=== PATIENT | male | born 1945 | race Caucasian/White ===

== ENCOUNTER 2020-10-19 13:39 | Emergency (ER) | payer MEDICARE, SELFPAY ==
--- NOTE | ~2020-10-19 | CT_ITS ---
EXAMINATION: CT ABDOMEN AND PELVIS WITHOUT CONTRAST CLINICAL INFORMATION: Left-sided pain with history of diverticulitis . COMPARISON: 11/28/2016. TECHNIQUE: Multidetector volumetric imaging was performed from the superior aspect of the liver through the pubic symphysis without contrast per request. Sagittal and coronal reformatted images were obtained on the technologist workstation. This CT examination was performed using dose optimization techniques as appropriate, variously including the following: *Automated exposure control *Adjustment of mA and/or kV according to patient size (this includes techniques or standardized protocols for targeted exams where dose is matched to indication/reason for exam; i.e. extremities or head) *Use of iterative reconstruction technique DLP: 814 mGy-cm. FINDINGS: LUNG BASES: Minimal right basilar atelectasis. No significant effusion. Pacemaker leads noted. Small hiatal hernia. LIVER, GALLBLADDER, BILIARY TREE: The non-contrast liver is normal in size, shape, and attenuation. No focal hepatic lesion or biliary ductal dilatation is present. The gallbladder is unremarkable with no evidence of radiopaque gallstones, gallbladder wall thickening, or obvious pericholecystic inflammatory changes. PANCREAS: Unremarkable. SPLEEN: Unremarkable. ADRENAL GLANDS: Unremarkable. KIDNEYS AND URETERS: Low-attenuation probable renal cysts are again seen bilaterally similar to the prior study. Otherwise the kidneys are normal in size, shape, and attenuation. No hydronephrosis, hydroureter, or calculi seen. No perinephric stranding. BLADDER: Decompressed. GASTROINTESTINAL TRACT: Scattered colonic diverticulosis within the tortuous redundant colon however I do not appreciate any definitive colonic wall thickening or significant pericolonic inflammatory changes to suggest acute diverticulitis. No obstructive changes seen. Visualized small bowel grossly unremarkable ABDOMINAL WALL: Postoperative changes along the intra-abdominal wall without evidence for herniation. LYMPHOVASCULAR STRUCTURES: Mild vascular calcification within the aorta iliac system. No bulky retroperitoneal or mesenteric adenopathy.. PELVIC VISCERA: Prominent prostatic calcifications. OSSEUS STRUCTURES: Degenerative changes in the spine. Lumbar spinal surgery at L4/L5 new from the [address]/CT abdomen pelvis wo con IMPRESSION: Extensive diverticulosis but no evidence for acute diverticulitis. No obstructive changes. Chronic appearing and postoperative changes otherwise as described above..
[2020-10-19 14:36] VITALS: BP 129/86; PULSE 79; RESP 18; TEMP 36.7; O2SAT 97; BMI 35.3
[2020-10-19 15:38] LABS: MANUAL DIFF FLAG NO
[2020-10-19 15:44] LABS: Basophils Percent Auto 0.4 % (0-2); Eosinophils Absolute Auto 0.2 X10*3/uL (0.0-0.4); Eosinophils Percent Auto 3.8 % (0-4); Hematocrit 45.7 % (42-52); Hemoglobin 15.5 g/dl (14.0-18.0); Imm Gran Abs Auto 0.01 X10*3/uL (0.00-0.03); Imm Gran Pct Auto 0.2 % (0.0-0.4); Lymphocytes Absolute Auto 1.3 X10*3/uL (1.2-4.9); Lymphocytes Percent Auto 22.9 % (20-40); Mean Corpuscular HGB Conc 33.9 g/dl (31.0-36.0); Mean Corpuscular Hemoglobin 30.8 pg (27.0-33.0); Mean Corpuscular Volume 90.7 fL (80-98); Mean Platelet Volume 9.5 fL (9.4-12.4); Monocytes Absolute Auto 0.4 X10*3/uL (0.1-1.2); Monocytes Percent Auto 7.8 % (2-11); Neutrophils Absolute Auto 3.6 X10*3/uL (2.0-8.3); Neutrophils Percent Auto 64.9 % (45-73); Platelet Count 197 X10*3/uL (160-400); Red Blood Count 5.04 X10*6/uL (4.60-5.80); Red Cell Distribution Width 14.2 % (11.0-16.0); White Blood Count 5.5 X10*3/uL (4.8-10.8)
[2020-10-19 15:44] LABS: Glucose Urine UA NEG (NEG); Leukocyte Esterase Urine NEG (NEG); Nitrite Urine NEG (NEG); PH 5.5 (5.0-8.0); Specific Gravity - Urine >= 1.030 (1.005-1.025); Urine Blood NEG (NEG); Urine Ketones NEG (NEG); Urine Protein 1+ MG/DL (NEG-TRACE)
[2020-10-19 15:55] LABS: Appearance Urine CLEAR; Color Urine DARK YELLOW
[2020-10-19 16:04] LABS: Alanine Aminotransferase 18 U/L (0-40); Albumin Level 4.2 g/dL (3.5-5.0); Alkaline Phosphatase 75 U/L (39-117); Anion Gap 14 (12-20); Aspartate Amino Transferase 24 U/L (5-37); Bilirubin Total 0.9 mg/dL (0.0-1.0); Blood Urea Nitrogen 18 mg/dL (9-16); Calcium 9.7 mg/dL (8.4-10.2); Carbon Dioxide 28 mmol/L (22-29); Chloride 105 mmol/L (96-108); Creatinine Clr Calc Pharmacy 79.3; Estimated Glomerular Filt Rate > 60; Glucose Random 88 mg/dL (60-115); Potassium 4.8 mmol/L (3.3-5.1); Sodium 142 mmol/L (135-145); Total Protein 7.3 g/dL (6.5-8.0)
[2020-10-19 16:51] LABS: RBC Urine 0-2 /HPF (0); Renal Epithelial Cells Urine 1+ /LPF; Squamous Epithelial Cell Urine 1+ /LPF; WBC Urine 0-2 /HPF (0-4)
[2020-10-19 19:50] VITALS: BP 162/87; PULSE 63; RESP 18; TEMP 36.7; O2SAT 98
--- NOTE | 2020-10-19 20:29 | ED_ITS ---
HPI - Abdominal Pain General Chief Complaint: Abdominal Pain Stated Complaint: General Medical Time Seen by Provider: 10/19/20 20:26 Source: patient Mode of arrival: ambulatory Limitations: no limitations History of Present Illness HPI narrative: patient with history of recurrent diverticulitis had bowel resection in the past complaining of pain diffuse abdomen for last 3 - 4 days getting worse feels abdomen is slightly bloated pain is more on the left side than the right side no fever or chills no blood in the stool feels constipated Related Data Previous Rx's Medication Instructions Recorded amoxicillin-pot clavulanate 1 tab PO BID #20 tab 10/19/20 [Augmentin] tramadol 50 mg PO Q6H PRN #20 tab 10/19/20 Allergies Allergy/AdvReac Type Severity Reaction Status Date / Time Iodinated Contrast Media Allergy Unknown HIVES, Verified 10/19/20 14:35 [IV CONTRAST] SWELLING contrast dye Allergy Intermediate rash, Uncoded 10/19/20 14:35 itching Review of Systems Review of Systems Yes all other systems are reviewed and are negative Physical Exam Vital Signs: Vital Signs: Last Vital Signs Temp 98.1 F 10/19/20 19:50 Pulse 60 10/19/20 21:04 Resp 16 10/19/20 21:04 BP 132/78 10/19/20 21:04 Pulse Ox 91 L 10/19/20 21:04 Body Mass Index 35.3 Appearance: Alert. Oriented X3. No acute distress. Eyes: PERRLA, No Nystagmus ENT: Pharynx normal. Oral Mucosa moist Neck: Normal inspection. Neck supple. CVS: Normal heart rate and rhythm. Pulses normal. Respiratory: No respiratory distress. Equal air entry bilateral, no wheezing/rales/rhonchi Abdomen: Soft, diffuse tenderness abdomen more on the left side than the right no rebound tenderness or guarding Bowel sounds are present, no mass palpable, no CVA tenderness Skin: Skin warm and dry. Normal skin color. Normal skin turgor. Extremities: No lower extremity edema. No calf tenderness Neuro: Oriented X 3. No motor deficit. No sensory deficit.No cerebellar signs , cranial nerves II-XII intact MDM - Abdominal Pain MDM Narrative Medical decision making narrative: patient history of diverticulitis now WBC count CT scan showed diverticulosis without diverticulitis will discharge maura delacruz home on Augmentin Medical Records Attestation: I reviewed the patient's medical records. Lab Data Attestation: I reviewed the patient's lab results. Result diagrams: 10/19/20 15:17 10/19/20 15:17 Labs: Lab Results 10/19/20 10/19/20 10/19/20 Range/Units 15:17 15:17 15:34 WBC 5.5 (4.8-10.8) X10*3/uL RBC 5.04 (4.60-5.80) X10*6/uL Hgb 15.5 (14.0-18.0) g/dl Hct 45.7 (42-52) % MCV 90.7 (80-98) fL MCH 30.8 (27.0-33.0) pg MCHC 33.9 (31.0-36.0) g/dl RDW 14.2 (11.0-16.0) % Plt Count 197 (160-400) X10*3/uL MPV 9.5 (9.4-12.4) fL Immature Gran % (Auto) 0.2 (0.0-0.4) % Neut % (Auto) 64.9 (45-73) % Lymph % (Auto) 22.9 (20-40) % [place] % (Auto) 7.8 (2-11) % Eos % (Auto) 3.8 (0-4) % Baso % (Auto) 0.4 (0-2) % Lymph # (Auto) 1.3 (1.2-4.9) X10*3/uL [place] # (Auto) 0.4 (0.1-1.2) X10*3/uL Eos # (Auto) 0.2 (0.0-0.4) X10*3/uL Baso # (Auto) 0.0 (0.0-0.2) X10*3/uL Abs Immat Gran (auto) 0.01 (0.00-0.03) X10*3/uL Absolute Neuts (auto) 3.6 (2.0-8.3) X10*3/uL Absolute Nucleated RBC 0.000 (0.0-0.012) X10*3/uL Nucleated RBC % (auto) 0.0 (0.0-0.2) /100WBC Sodium 142 (135-145) mmol/L Potassium 4.8 (3.3-5.1) mmol/L Chloride 105 (96-108) mmol/L Carbon Dioxide 28 (22-29) mmol/L Anion Gap 14 (12-20) BUN 18 H (9-16) mg/dL Creatinine 0.99 (0.5-1.4) mg/dL Estim Creat Clear Calc 79.3 Estimated GFR > 60 Random Glucose 88 (60-115) mg/dL Calcium 9.7 (8.4-10.2) mg/dL Total Bilirubin 0.9 (0.0-1.0) mg/dL AST 24 (5-37) U/L ALT 18 (0-40) U/L Alkaline Phosphatase 75 (39-117) U/L Total Protein 7.3 (6.5-8.0) g/dL Albumin 4.2 (3.5-5.0) g/dL Urine Color DARK YELLOW Urine Appearance CLEAR Urine pH 5.5 (5.0-8.0) Ur Specific Miles >= 1.030 H (1.005-1.025) Urine Protein 1+ H (NEG-TRACE) MG/DL Urine Glucose (UA) NEG (NEG) MG/DL Urine Ketones NEG (NEG) MG/DL Urine Blood NEG (NEG) Urine Nitrite NEG (NEG) Ur Leukocyte Esterase NEG (NEG) Urine RBC 0-2 (0) /HPF Urine WBC 0-2 (0-4) /HPF Ur Squamous Epith Cells 1+ /LPF Ur Renal Epithelial Cell 1+ /LPF Urine Bacteria NONE /LPF Discharge Plan Discharge Clinical Impression: Diverticulosis of colon Patient Disposition: Home, Self-Care Instructions: Diverticulosis (ED) Additional Instructions: you have diffuse diverticulosis will give a short course of antibiotics. Report to the ER if pain gets worse/fever / vomiting have clear food, advance diet as tolerated Prescriptions: New tramadol 50 mg tablet 50 mg PO Q6H PRN (Reason: pain) Qty: 20 RF: 0 amoxicillin-pot clavulanate [Augmentin] 875-125 mg tablet 1 tab PO BID Qty: 20 RF: 0 PMFSH Past Medical History Medical History Diabetes Diverticulitis HTN (hypertension) Surgical History H/O abdominal surgery Social History Social History Advance Directives: No Advance Directives Information Provided: Yes
[2020-10-19] MEDS: ondansetron HCL 4 MG/2 ML VIAL IVPUSH (20:59)
[2020-10-19] MEDS: 0.9 % Sodium Chloride 1,000 ML 999 ML IVCONT (20:59)
[2020-10-19] MEDS: Morphine Sulfate 4 MG/ML CARTRIDGE IVPUSH (20:59)
[2020-10-19 21:04] VITALS: BP 132/78; PULSE 60; RESP 16; O2SAT 91
[2020-10-19] MEDS: Amoxicillin/Potassium Clav 875 MG TABLET PO (21:35)
--- NOTE | 2020-10-19 21:38 | PC.NURSE ---
PT RESTING IN BED, LESS FREQUENT TRIPS TO THE BATHROOM IN THE LAST FEW HOURS. PT REPORTS HIS PAIN NOW 10/01 FROM 12/01. PT HAS NOT EXPERIENCED ANY NAUSEA OR VOMITING WHILE HERE. PT CAME IN DRINKING COFFEE.
[2020-10-19 22:09] VITALS: BP 144/83; PULSE 60; RESP 16; O2SAT 93
== END 2020-10-19 22:29 | disposition home or self-care (01) ==
PROVIDERS: Emergency Provider Internal Medicine
DX: K57.30 Diverticulosis of large intestine without perforation or abscess without bleeding (principal); E11.9 Type 2 diabetes mellitus without complications; I10 Essential (primary) hypertension
CPT/HCPCS: 36415; 74176; 80053; 81001; 85025; 96361; 96374; 96375; 99284; J2270; J2405

== ENCOUNTER 2020-12-11 19:43 | Emergency (ER) | payer MEDICARE, SELFPAY ==
[2020-12-11 20:08] VITALS: BP 180/99; PULSE 75; RESP 16; TEMP 36.6; O2SAT 97; BMI 35.0
[2020-12-11 20:43] LABS: MANUAL DIFF FLAG NO
[2020-12-11 20:47] LABS: Basophils Percent Auto 0.9 % (0-2); Eosinophils Absolute Auto 0.4 X10*3/uL (0.0-0.4); Eosinophils Percent Auto 8.3 % (0-4); Hematocrit 40.8 % (42-52); Hemoglobin 14.3 g/dl (14.0-18.0); Imm Gran Abs Auto 0.02 X10*3/uL (0.00-0.03); Imm Gran Pct Auto 0.5 % (0.0-0.4); Lymphocytes Absolute Auto 1.3 X10*3/uL (1.2-4.9); Lymphocytes Percent Auto 30.1 % (20-40); Mean Corpuscular Hemoglobin 31.5 pg (27.0-33.0); Mean Corpuscular Volume 89.9 fL (80-98); Mean Platelet Volume 9.3 fL (9.4-12.4); Monocytes Absolute Auto 0.4 X10*3/uL (0.1-1.2); Monocytes Percent Auto 9.7 % (2-11); Neutrophils Absolute Auto 2.2 X10*3/uL (2.0-8.3); Neutrophils Percent Auto 50.5 % (45-73); Platelet Count 167 X10*3/uL (160-400); Red Blood Count 4.54 X10*6/uL (4.60-5.80); Red Cell Distribution Width 13.5 % (11.0-16.0); White Blood Count 4.4 X10*3/uL (4.8-10.8)
[2020-12-11 21:07] LABS: Alanine Aminotransferase 16 U/L (0-40); Albumin Level 3.8 g/dL (3.5-5.0); Alkaline Phosphatase 81 U/L (39-117); Anion Gap 12 (12-20); Aspartate Amino Transferase 17 U/L (5-37); Bilirubin Total 0.6 mg/dL (0.0-1.0); Blood Urea Nitrogen 14 mg/dL (9-16); Calcium 9.1 mg/dL (8.4-10.2); Carbon Dioxide 29 mmol/L (22-29); Chloride 108 mmol/L (96-108); Creatinine Clr Calc Pharmacy 78.6; Estimated Glomerular Filt Rate > 60; Glucose Random 129 mg/dL (60-115); Potassium 4.6 mmol/L (3.3-5.1); Sodium 144 mmol/L (135-145); Total Protein 6.5 g/dL (6.5-8.0)
[2020-12-11 22:40] VITALS: BP 183/100; PULSE 62; RESP 16; TEMP 36.5; O2SAT 95
--- NOTE | 2020-12-11 23:07 | ED.GENADULT ---
HPI - General Adult General Chief complaint: General Medical Stated complaint: High blood pressure Time Seen by Provider: 12/11/20 23:07 Source: patient Mode of arrival: ambulatory Limitations: no limitations History of Present Illness HPI narrative: patient went to [facility] and was found to have BP of 176/95 six days ago. patient has been checking everyday and it remains high. patient is on Metoprolol 25mg BID and Valsartan 160mg. Patient denies chest pain or shortness of breath Onset (ago): week(s) Severity: moderate Related Data Previous Rx's Medication Instructions Recorded amoxicillin 875 mg-potassium 1 tab PO BID #20 tab 10/19/20 clavulanate 125 mg tablet (Augmentin) tramadol 50 mg tablet 50 mg PO Q6H PRN #20 tab 10/19/20 Allergies Allergy/AdvReac Type Severity Reaction Status Date / Time Iodinated Contrast Media Allergy Unknown HIVES, Verified 10/19/20 14:35 [IV CONTRAST] SWELLING contrast dye Allergy Intermediate rash, Uncoded 10/19/20 14:35 itching Review of Systems Neurologic: Denies Sensory deficit (Neuro) [facility] Past Medical History Medical History Diabetes Diverticulitis HTN (hypertension) Surgical History H/O abdominal surgery Social History Social History Advance Directives: No Advance Directives Information Provided: No Physical Exam Vital Signs: Vital Signs: Last Vital Signs Temp 97.7 F 12/11/20 22:40 Pulse 60 12/12/20 00:26 Resp 18 12/12/20 00:26 BP 178/104 H 12/12/20 00:26 Pulse Ox 98 12/12/20 00:26 Body Mass Index 35.0 Const: General: healthy appearing Nutritional Appearance: average body habitus Orientation/consciousness: oriented to person and patient oriented x3 Limitations: no limitations HENMT: Head: Yes normal to inspection Ears: external ears normal General nose exam: Normal external nose present Mouth: Normal oral and palatal mucosa present and oropharynx normal Throat: Yes posterior oropharynx normal Eyes: General: appearance normal, both eyes and all related structures Neck: Other: supple Neck: Yes normal visual inspection Chest: Chest palpation & inspection: normal inspection of the chest Resp: Auscultation: clear to auscultation bilaterally Cardio: Jugular venous distension: no JVD Rate: regular rate Rhythm: regular rhythm Heart sounds: S1 normal heart sound present and S2 normal heart sound present GI: Inspection: Yes normal to inspection Palpation (GI): Soft to palpation, nontender and No hepatosplenomegaly present Auscultation: normal bowel sounds : General: Yes no CVA tenderness Back/Spine/Pelvis: Back: no CVA tenderness Skin: General skin exam: no rashes or lesions noted Neuro: General: oriented to person and patient oriented x3 Cranial nerves: Yes CN's II-XII intact bilaterally Motor exam (neuro): 5/5 motor strength present throughout Sensory Exam: No Sensory deficit (Neuro) Extrem: General: Yes normal to inspection Psych: Appearance: grossly normal Course Reevaluation(s) Reevaluation #1: patients pressure is coming down no evidence of end organ damage will increase metoprolol to 50mg twice a day Time: 01:13 Medical Decision Making Lab Data Result diagrams: 12/11/20 20:37 12/11/20 20:37 Labs: Lab Results 12/11/20 12/11/20 Range/Units 20:37 20:37 WBC 4.4 L (4.8-10.8) X10*3/uL RBC 4.54 L (4.60-5.80) X10*6/uL Hgb 14.3 (14.0-18.0) g/dl Hct 40.8 L (42-52) % MCV 89.9 (80-98) fL MCH 31.5 (27.0-33.0) pg MCHC 35.0 (31.0-36.0) g/dl RDW 13.5 (11.0-16.0) % Plt Count 167 (160-400) X10*3/uL MPV 9.3 L (9.4-12.4) fL Immature Gran % (Auto) 0.5 H (0.0-0.4) % Neut % (Auto) 50.5 (45-73) % Lymph % (Auto) 30.1 (20-40) % [place] % (Auto) 9.7 (2-11) % Eos % (Auto) 8.3 H (0-4) % Baso % (Auto) 0.9 (0-2) % Lymph # (Auto) 1.3 (1.2-4.9) X10*3/uL [place] # (Auto) 0.4 (0.1-1.2) X10*3/uL Eos # (Auto) 0.4 (0.0-0.4) X10*3/uL Baso # (Auto) 0.0 (0.0-0.2) X10*3/uL Abs Immat Gran (auto) 0.02 (0.00-0.03) X10*3/uL Absolute Neuts (auto) 2.2 (2.0-8.3) X10*3/uL Absolute Nucleated RBC 0.000 (0.0-0.012) X10*3/uL Nucleated RBC % (auto) 0.0 (0.0-0.2) /100WBC Sodium 144 (135-145) mmol/L Potassium 4.6 (3.3-5.1) mmol/L Chloride 108 (96-108) mmol/L Carbon Dioxide 29 (22-29) mmol/L Anion Gap 12 (12-20) BUN 14 (9-16) mg/dL Creatinine 0.98 (0.5-1.4) mg/dL Estim Creat Clear Calc 78.6 Estimated GFR > 60 Random Glucose 129 H D (60-115) mg/dL Calcium 9.1 D (8.4-10.2) mg/dL Total Bilirubin 0.6 (0.0-1.0) mg/dL AST 17 (5-37) U/L ALT 16 (0-40) U/L Alkaline Phosphatase 81 (39-117) U/L Total Protein 6.5 (6.5-8.0) g/dL Albumin 3.8 (3.5-5.0) g/dL Discharge Plan Discharge Clinical Impression: Hypertension Qualifiers: Hypertension type: primary hypertension Qualified Code(s): I10 - Essential (primary) hypertension Patient Disposition: Home, Self-Care Instructions: Chronic Hypertension (ED) Additional Instructions: increase your metoprolol to 50mg twice a day Prescriptions: No Action tramadol 50 mg tablet 50 mg PO Q6H PRN (Reason: pain) Qty: 20 RF: 0 amoxicillin-pot clavulanate [Augmentin] 875-125 mg tablet 1 tab PO BID Qty: 20 RF: 0 Referrals: Physician,None [Primary Care Provider] - 1 week
[2020-12-11 23:18] VITALS: BP 183/105; PULSE 61; RESP 16; O2SAT 98
[2020-12-11 23:23] VITALS: BP 183/105; PULSE 61
[2020-12-11] MEDS: Metoprolol Succinate ER 50 MG TAB.ER.24H PO (23:23)
[2020-12-12] VITALS: BP 183/104; PULSE 60; O2SAT 98
[2020-12-12 00:26] VITALS: BP 178/104; PULSE 60; RESP 18; O2SAT 98
[2020-12-12 01:23] VITALS: BP 177/97; PULSE 62
[2020-12-12 01:23] LABS: Glucose Urine UA NEG (NEG); Leukocyte Esterase Urine NEG (NEG); Nitrite Urine NEG (NEG); PH 7.5 (5.0-8.0); Specific Gravity - Urine 1.015 (1.005-1.025); Urine Blood NEG (NEG); Urine Ketones NEG (NEG); Urine Protein NEG (NEG-TRACE)
[2020-12-12 01:46] LABS: Appearance Urine HAZY; Color Urine STRAW; UACC Culture Trigger NO
== END 2020-12-12 01:29 | disposition home or self-care (01) ==
PROVIDERS: Emergency Provider Emergency Medicine
DX: I10 Essential (primary) hypertension (principal); E11.9 Type 2 diabetes mellitus without complications; Z79.899 Other long term (current) drug therapy
CPT/HCPCS: 36415; 80053; 81003; 85025; 99283; 99284

== ENCOUNTER 2020-12-17 09:44 | Emergency (ER) | payer MEDICARE, SELFPAY ==
[2020-12-17 10:05] VITALS: BP 153/96; PULSE 70; RESP 16; TEMP 36.7; O2SAT 97; BMI 35.7
--- NOTE | 2020-12-17 10:15 | ED.GENADULT ---
HPI - General Adult General Chief complaint: Recheck/Abnormal Lab/Rx Stated complaint: high blood sugar Time Seen by Provider: 12/17/20 10:08 Source: patient Mode of arrival: ambulatory Limitations: no limitations History of Present Illness HPI narrative: compliant with meds, going to 6 different pharmacies checking his BP complaint: HTN Onset (ago): week(s) (1) Severity: mild Relieving factors: none Exacerbating factors: none Associated symptoms: denies other symptoms Treatments prior to arrival: none Related Data Previous Rx's Medication Instructions Recorded amoxicillin 875 mg-potassium 1 tab PO BID #20 tab 10/19/20 clavulanate 125 mg tablet (Augmentin) tramadol 50 mg tablet 50 mg PO Q6H PRN #20 tab 10/19/20 Allergies Allergy/AdvReac Type Severity Reaction Status Date / Time Iodinated Contrast Media Allergy Unknown HIVES, Verified 10/19/20 14:35 [IV CONTRAST] SWELLING contrast dye Allergy Intermediate rash, Uncoded 10/19/20 14:35 itching Review of Systems Review of Systems: Constitutional : No Fever, No Chills ENT/Mouth : No sore throat, No Rhinorrhea Eyes: No Eye Pain, No Swelling, No Redness Cardiovascular : No Chest Pain, No SOB Respiratory : No Cough, No Sputum, No Wheezing Gastrointestinal : No Nausea, No Vomiting, No Diarrhea Genitourinary : No Dysuria, No Urinary Frequency, No Hematuria, Musculoskeletal : No joint pain, No Myalgias, No Joint Swelling Skin : No Skin Lesions, No rash Neuro : No Weakness, No Numbness, No Dizziness, No Headache All other systems reviewed and are negative PMFSH Past Medical History Medical History Diabetes Diverticulitis HTN (hypertension) Surgical History H/O abdominal surgery Social History Social History Advance Directives: No Advance Directives Information Provided: No Physical Exam Vital Signs: Vital Signs: Last Vital Signs Temp 98.1 F 12/17/20 10:05 Pulse 70 12/17/20 10:05 Resp 16 12/17/20 10:05 BP 153/96 H 12/17/20 10:05 Pulse Ox 97 12/17/20 10:05 Body Mass Index 35.7 Appearance: Alert. Oriented X3. No acute distress. Eyes: Pupils equal, round and reactive to light. ENT: Pharynx normal. Neck: Normal inspection. Neck supple. CVS: Normal heart rate and rhythm. Pulses normal. Respiratory: No respiratory distress. Breath sounds normal. Abdomen: Soft and non-tender. Skin: Skin warm and dry. Normal skin color. Normal skin turgor. Extremities: No lower extremity edema. No calf ttp Neuro: Oriented X 3. No motor deficit. No sensory deficit. Medical Decision Making MDM Narrative Medical decision making narrative: 75 yo male with HTN no symptoms but very nervous as he goes to 6 different pharmacies a dtrying to check his pressure and states it is high at times but no symptoms. Likely anxiety driven. Discussed appropriate blood pressure checks. Stable for DC Discharge Plan Discharge Clinical Impression: HTN (hypertension) Qualifiers: Hypertension type: unspecified Qualified Code(s): I10 - Essential (primary) hypertension Patient Disposition: Home, Self-Care Instructions: Chronic Hypertension (ED) Additional Instructions: return to ED for any worsening symptoms or concerns ONLY CHECK YOUR BLOOD PRESSURE IN THE MORNING AND AT NIGHT UNLESS YOU HAVE SYMPTOMS Prescriptions: No Action tramadol 50 mg tablet 50 mg PO Q6H PRN (Reason: pain) Qty: 20 RF: 0 amoxicillin-pot clavulanate [Augmentin] 875-125 mg tablet 1 tab PO BID Qty: 20 RF: 0
[2020-12-17 10:30] VITALS: BP 153/92; PULSE 66; RESP 15; TEMP 36.7; O2SAT 96
== END 2020-12-17 10:42 | disposition home or self-care (01) ==
PROVIDERS: Emergency Provider Emergency Medicine
DX: I10 Essential (primary) hypertension (principal); E11.9 Type 2 diabetes mellitus without complications
CPT/HCPCS: 99282; 99284

== ENCOUNTER 2023-07-08 12:04 | Emergency (ER) | payer MEDICARE, SELFPAY ==
--- NOTE | ~2023-07-08 | CT_ITS ---
EXAMINATION: CT HEAD WITHOUT CONTRAST CLINICAL INFORMATION: Dizziness COMPARISON: CT head 09/01/2011 TECHNIQUE: Contiguous axial imaging was performed from the skull base to vertex without intravenous administration of contrast. This CT examination was performed using dose optimization techniques as appropriate, variously including the following: *Automated exposure control *Adjustment of mA and/or kV according to patient size (this includes techniques or standardized protocols for targeted exams where dose is matched to indication/reason for exam; i.e. extremities or head) *Use of iterative reconstruction technique DLP: 749 mGy-cm FINDINGS: There is no evidence of acute intracranial hemorrhage or emphysematous territorial infarction. No abnormal mass effect or midline shift is seen. Siu to white matter differentiation is well preserved. No extra-axial fluid collections are identified. The ventricles are normal in size. Patchy periventricular and deep white matter hypodensities likely reflecting chronic microangiopathic changes. No acute calvarial fracture.. Mucosal thickening/partial opacification of bilateral maxillary, ethmoid, sphenoid sinuses. Decreased pneumatization of bilateral mastoid air cells. CT/CT head/brain wo IV con IMPRESSION: No CT evidence of acute intracranial hemorrhage or edematous territorial infarction. Maxillary, ethmoid and sphenoid sinus mucosal thickening/partial opacification.
--- NOTE | ~2023-07-08 | XR_ITS ---
EXAMINATION: XR HIP, LEFT CLINICAL INFORMATION: Pain, difficulty standing and walking COMPARISON: None available. TECHNIQUE: Two views of the left hip. One view of the pelvis. FINDINGS: No acute fracture or dislocation. Joint spaces are maintained. Soft tissues are unremarkable. Surgical clips overlying the pelvis. Surgical wilfredo overlie the pelvis. Partially imaged lumbar fusion hardware. XR/XR hip LT w PEL1V IMPRESSION: * No acute osseous abnormality.
--- NOTE | ~2023-07-08 | XR_ITS ---
EXAMINATION: XR CHEST CLINICAL INFORMATION: Reason for Exam hypoxic, tachycardic COMPARISON: Chest radiograph 07/04/2011 TECHNIQUE: 2 views of the chest FINDINGS: Lines and tubes: Left chest wall dual lead cardiac pacemaker unchanged. Clear lungs. No pleural effusion. No pneumothorax. Normal cardiomediastinal silhouette. XR/XR chest 2V IMPRESSION: * Clear lungs.
[2023-07-08 12:09] VITALS: BP 95/63; PULSE 123; RESP 20; TEMP 37.2; O2SAT 93; BMI 32.6
--- NOTE | 2023-07-08 12:11 | ED.GENADULT ---
HPI - General Adult General Chief complaint: Extremity Injury, Lower Stated complaint: Hip pain Time Seen by Provider: 07/08/23 16:11 Source: patient and family Mode of arrival: wheelchair Limitations: no limitations History of Present Illness HPI narrative: 77 yo male with a history of DM, HTN, prior back surgery here with multiple complaints. Per patent over the last 2 weeks he has had progressive left hip pain with no known injury or trauma. He has been taking tylenol with continued pain. Denies radiation of pain. No associated numbness, tingling, weakness of the lower extremities. No bowel or bladder incontinence. No numbness in the groin. No fevers or chills. Patient reports that he had been taking gabapentin for pain but has not taken it for several months. Last evening he had worsening left hip pain and he took a dose of gabapentin and Tylenol before bed. When he woke up this morning he noticed that he was feeling very shaky and weak and was having difficulty with ambulation. He is now feeling better. He denies any associated headache, dizziness, vision changes, vomiting, chest pain, shortness of breath. Of note, the patient has been visiting his family from [place]. He has plans to return home tomorrow where his care providers are. Related Data Previous Rx's Medication Instructions Recorded amoxicillin 875 mg-potassium 1 tab PO BID #20 tabs 10/19/20 clavulanate 125 mg tablet (Augmentin) tramadol 50 mg tablet 50 mg PO Q6H PRN pain #20 tabs 10/19/20 cefuroxime axetil 500 mg tablet 500 mg PO BID #14 tabs 07/08/23 Allergies Allergy/AdvReac Type Severity Reaction Status Date / Time Iodinated Contrast Media Allergy Unknown HIVES, Verified 07/08/23 12:15 [IV CONTRAST] SWELLING contrast dye Allergy Intermediate rash, Uncoded 07/08/23 12:15 itching Review of Systems Review of Systems: Yes all other systems are reviewed and are negative Constitutional: Constitutional: Reports no additional constitutional complaints, Denies body ache(s), Denies chills, Denies fever(s), Denies headache(s) and Denies weakness Eyes: Eyes: Reports no additional eye complaints and Denies change in vision ENT: Reports system reviewed and no additional complaints, except as documented, Denies dizziness, Denies headache(s), Denies nasal congestion, Denies nasal discharge and Denies neck pain Cardiovascular: Cardiovascular: Reports no additional cardiovascular complaints, Denies chest pain, Denies leg edema and Denies dyspnea Respiratory: Respiratory: Reports no additional respiratory complaints, Denies cough and Denies dyspnea Gastrointestinal: Gastrointestinal: Reports no additional gastrointestinal complaints, Denies abdominal pain, Denies diarrhea, Denies nausea and Denies vomiting Genitourinary: Genitourinary: Denies urinary incontinence Musculoskeletal: Musculoskeletal: Reports no additional musculoskeletal complaints, Reports abnormal gait, Denies back pain, Reports arthralgias, Denies joint swelling, Denies neck pain, Denies numbness and Denies tingling Integumentary/Breasts: Skin/Breast: Reports system reviewed and no additional complaints, except as docu and Denies rash Neurologic: Reports system reviewed and no additional complaints, except as documented, Denies Abnormal speech present, Reports abnormal gait, Denies dizziness, Denies headache(s), Denies numbness, Denies tingling and Denies weakness PMFSH Past Medical History Attestation statement: The following information was validated with the patient. Source: old records reviewed and nursing notes reviewed Medical History HTN (hypertension) Diabetes Diverticulitis Surgical History H/O abdominal surgery Social History Social History Alcohol intake: never Patient Tobacco Use Status: Never used Tobacco Smoked in Last 30 Days: No Use of substances other than those prescribed or required for medical reasons: No Advance Directives: No Advance Directives Information Provided: No Physical Exam ED Vital Signs: Vital Signs - 24 hr 07/08/23 12:09 07/08/23 16:06 07/08/23 17:03 Temperature 98.9 F 99.1 F Pulse Rate 123 H 77 78 Respiratory Rate 20 16 Blood Pressure 95/63 133/69 124/58 L Pulse Oximetry 93 95 Oxygen Delivery Method Room Air Room Air 07/08/23 17:06 07/08/23 17:08 Temperature Pulse Rate 87 100 Respiratory Rate Blood Pressure 124/64 113/68 Pulse Oximetry Oxygen Delivery Method BMI result Body Mass Index 32.6 Const General: cooperative, healthy appearing, comfortable and no acute distress Orientation/consciousness: patient oriented x3 Limitations: no limitations HENMT Head: Yes normal to inspection, No Somers's sign and No raccoon eyes Ears: hearing grossly normal bilaterally and TM's normal bilaterally General nose exam: Normal external nose present Face and sinus: Yes normal facial exam Mouth: Normal oral and palatal mucosa present Throat: Yes posterior oropharynx normal Eyes General: appearance normal, both eyes and all related structures Pupils: Equal, round and reactive pupils present Neck Neck: Yes normal visual inspection, Yes full ROM, Yes no lymphadenopathy and Yes no meningeal signs Chest Chest palpation & inspection: normal inspection of the chest Resp Effort & Inspection: normal respiratory effort Auscultation: clear to auscultation bilaterally Cardio Rate: regular rate Rhythm: regular rhythm Peripheral pulses: Peripheral pulses 2+ throughout GI Inspection: Yes normal to inspection Palpation (GI): Soft to palpation and nontender Auscultation: normal bowel sounds Back/Spine/Pelvis Thoracic/Lumbar Spine: thoracic and lumbar spine normal to inspection Skin General skin exam: no rashes or lesions noted Neuro General: patient oriented x3, moves all extremities, no meningeal signs, no focal motor deficits and normal sensation to monofilament Cranial nerves: Yes CN's II-XII intact bilaterally, Yes Equal, round and reactive pupils present, Yes Bilaterally intact EOM present, Yes Nystagmus not present, Yes Normal facial strength present and Yes Midline tongue present Cognition (Neuro): normal cognition Speech: No Abnormal speech present Gait exam (Neuro): Normal gait present Motor exam (neuro): 5/5 motor strength present throughout Sensory Exam: Normal double simultaneous stimulation for sensation Coordination: [id number]-brvy test normal, [id number]-[id number] test normal and tandem gait normal Extrem Other: I am unable to reproduce any hip pain on exam. Patient has full active and passive range motion. I do not appreciate any shortening or deformity of the hip. He has distal pulses. Normal sensation distally General: Yes normal to inspection NIH Stroke Scale Internal: Initial- Upon Arrival Level of Consciousness: Alert Level of Consciousness Questions: Answers both questions correctly Level of Consciousness Commands: Performs both tasks correctly Best Gaze: Normal Visual: No visual loss Facial Palsy: Normal Motor Arm (Right): No drift Motor Arm (Left): No drift Motor Leg (Right): No drift Motor Leg (Left): No drift Limb Ataxia: Absent Sensory: Normal Best Language: No aphasia Dysarthia: Normal Extinction and Inattention: No abnormality Score: 0 Course Course Course Narrative: This is a rapid medical exam: Additional HPI, ROS, PE not included below will be deferred to primary provider. Patient is a 77-year-old male presenting to the ED with complaint of left hip pain for the past 2 weeks, is worsening. Last night was unable to stand. Denies radiation down leg. Denies fall or other injury. BP 95/63 left arm, 97/73 right arm, tachycardic to 120, O2 93-95% on room air. Plan: x-ray, EKG, labs, CXR, viral swabs Reevaluation(s) Reevaluation #1: 1915-reviewed labs which show mild leukocytosis otherwise unremarkable. UA is consistent with UTI. No clinical findings to suggest pyelonephritis or renal colic. Imaging shows no acute finding. Normal neuro exam so I do not believe the patient needs CT with IV contrast or MRI to rule out underlying CVA or large vessel occlusion. Patient has plans to fly home to [place] tomorrow and follow-up with his providers. I will discharge him home with a prescription for an antibiotic. Reviewed worrisome signs and symptoms when to return to the emergency room. Comfortable plan for discharge home Medical Decision Making Medical Decision Making MDM Narrative: 77 yo male with a history of DM, HTN, prior back surgery here with multiple complaints. Per patent over the last 2 weeks he has had progressive left hip pain with no known injury or trauma. He has been taking tylenol with continued pain. Denies radiation of pain. No associated numbness, tingling, weakness of the lower extremities. No bowel or bladder incontinence. No numbness in the groin. No fevers or chills. Patient reports that he had been taking gabapentin for pain but has not taken it for several months. Last evening he had worsening left hip pain and he took a dose of gabapentin and Tylenol before bed. When he woke up this morning he noticed that he was feeling very shaky and weak and was having difficulty with ambulation. He is now feeling better. He denies any associated headache, dizziness, vision changes, vomiting, chest pain, shortness of breath. Of note, the patient has been visiting his family from [place]. He has plans to return home tomorrow where his care providers are. On exam patient has no neurological deficits or red flag symptoms. His NIH is 0. He reports he feels much improved now than he did earlier with waking. His vitals are stable I am unable to reproduce any hip pain on exam. Patient has full active and passive range motion. I do not appreciate any shortening or deformity of the hip. He has distal pulses. Normal sensation distally Will obtain labs, UA, orthostatic, CT head, x-rays of chest and left Differential Diagnosis Differential Diagnoses: The differential diagnosis associated with the presentation includes Hip Pain-strain, sprain, lumbar radiculopathy, osteoarthritis. Low suspicion for fracture or dislocation Unsteady gait-orthostatic hypotension, electrolyte abnormality, anemia, CVA/ICH, ACS Admission/Observation Consideration of admission/observation: Escalation of care including admission/observation considered Normal neurological exam with no focal deficits to suggest need for admission for MRI or urgent Neurology consultation Lab Data MDM Lab Attestation statement: I reviewed the patient's lab results. 07/08/23 12:25 07/08/23 12:25 Labs: Lab Results 07/08/23 07/08/23 07/08/23 Range/Units 12:25 17:55 18:40 WBC 13.9 H (4.8-10.8) X10*3/uL RBC 5.04 (4.60-5.80) X10*6/uL Hgb 15.6 (14.0-18.0) g/dl Hct 44.7 (42.0-52.0) % MCV 88.7 (80.0-98.0) fL MCH 31.0 (27.0-33.0) pg MCHC 34.9 (31.0-36.0) g/dl RDW 13.0 (11.0-16.0) % Plt Count 227 (160-400) X10*3/uL MPV 9.3 L (9.4-12.4) fL Immature Gran % (Auto) 0.4 (0.0-0.4) % Neut % (Auto) 81.4 H (45-73) % Lymph % (Auto) 10.8 L (20-40) % [place] % (Auto) 7.0 (2-11) % Eos % (Auto) 0.0 (0-4) % Baso % (Auto) 0.4 (0-2) % Lymph # (Auto) 1.5 (1.2-4.9) X10*3/uL [place] # (Auto) 1.0 (0.1-1.2) X10*3/uL Eos # (Auto) 0.0 (0.0-0.4) X10*3/uL Baso # (Auto) 0.1 (0.0-0.2) X10*3/uL Abs Immat Gran (auto) 0.06 H (0.00-0.03) X10*3/uL Absolute Neuts (auto) 11.4 H (2.0-8.3) x10*3/uL Absolute Nucleated RBC 0.000 (0.0-0.012) X10*3/uL Nucleated RBC % (auto) 0.0 (0.0-0.2) /100WBC PT 13.7 H (11.1-13.3) SEC INR 1.1 (0.9-1.1) Sodium 142 (135-145) mmol/L Potassium 4.4 (3.3-5.1) mmol/L Chloride 107 (96-108) mmol/L Carbon Dioxide 25 (22-29) mmol/L Anion Gap 14 (12-20) BUN 18 H (9-16) mg/dL Creatinine 1.14 (0.5-1.4) mg/dL Estim Creat Clear Calc 63.3 Estimated GFR > 60 Random Glucose 175 H (60-115) mg/dL Calcium 9.4 (8.4-10.2) mg/dL Magnesium 1.6 (1.6-2.6) mg/dL Total Bilirubin 1.5 H (0.0-1.0) mg/dL AST 12 (5-37) U/L ALT 11 (0-40) U/L Alkaline Phosphatase 71 (39-117) U/L Troponin I High Sens 19.4 22.4 (<3.5-35.0) ng/L Total Protein 7.4 (6.5-8.0) g/dL Albumin 4.0 (3.5-5.0) g/dL Urine Color Dark Yellow Urine Appearance Cloudy Urine pH 6.0 (5.0-9.0) Ur Specific [place] 1.020 (1.005-1.025) Urine Protein Trace (Neg-Trace) mg/dL Urine Glucose (UA) Negative (Negative) mg/dL Urine Ketones Trace (Negative) mg/dL Urine Blood Trace H (Negative) Urine Nitrite Positive H (Negative) Ur Leukocyte Esterase Large (3+) H (Negative) Urine RBC 0-2 (0-2) /HPF Urine WBC >50 H (0-5) /HPF Ur Squamous Epith Cells 0-2 (0-2) /HPF Urine Bacteria 4+ (None Seen) Hyaline Casts 3-5 (0-2) /LPF Influenza Type A (PCR) NEGATIVE (Negative) Influenza Type B (PCR) NEGATIVE (Negative) RSV RNA Qual (PCR) NEGATIVE (Negative) SARS-CoV-2 RNA (RT-PCR) NEGATIVE (Negative) Independent Interpretation I performed an independent interpretation of an: EKG, Plain X-Ray and CT Scan Interpretation: I independently reviewed the x-ray/CT and agree with the radiology report I independently reviewed the EKG which shows sinus tachycardia Radiology Impression Discussion of test interpretation with radiology: I have reviewed the radiologist's reading. Radiologist Impression: Launch?Image [address] [address] XRay Report Signed Patient: Rodri Castillo MR#: [id number] : 1945 Acct:[id number] Age/Sex: 77 / M ADM Date: 07/08/23 Loc: .ED Attending Dr: Ordering Physician: Vicenta Wells NP Date of Service: 07/08/23 Procedure(s): XR hip LT w PEL1V Accession Number(s): [id number] cc: Physician,Unknown ; Vicenta Wells NP~ EXAMINATION: XR HIP, LEFT CLINICAL INFORMATION: Pain, difficulty standing and walking COMPARISON: None available. TECHNIQUE: Two views of the left hip. One view of the pelvis. FINDINGS: No acute fracture or dislocation. Joint spaces are maintained. Soft tissues are unremarkable. Surgical clips overlying the pelvis. Surgical wilfredo overlie the pelvis. Partially imaged lumbar fusion hardware. XR/XR hip LT w PEL1V IMPRESSION: * No acute osseous abnormality. [address] [address] XRay Report Signed Patient: Rodri Castillo MR#: [id number] : 1945 Acct:[id number] Age/Sex: 77 / M ADM Date: 07/08/23 Loc: HO.ED Attending Dr: Ordering Physician: Vicenta Wells NP Date of Service: 07/08/23 Procedure(s): XR chest 2V Accession Number(s): [id number] cc: Physician,Unknown ; Vicenta Wells SOCIAL SCIENCE INSTRUCTOR~ EXAMINATION: XR CHEST CLINICAL INFORMATION: Reason for Exam hypoxic, tachycardic COMPARISON: Chest radiograph 07/04/2011 TECHNIQUE: 2 views of the chest FINDINGS: Lines and tubes: Left chest wall dual lead cardiac pacemaker unchanged. Clear lungs. No pleural effusion. No pneumothorax. Normal cardiomediastinal silhouette. XR/XR chest 2V IMPRESSION: * Clear lungs. [address] [address] [address] Scan Report Signed Patient: Rodri Castillo MR#: [id number] : 1945 Acct:[id number] Age/Sex: 77 / M ADM Date: 07/08/23 Loc: .ED Attending Dr: Ordering Physician: Melinda Garcia NP Date of Service: 07/08/23 Procedure(s): CT head/brain wo IV con Accession Number(s): [id number] cc: Physician,Unknown ; Melinda Garcia SOCIAL SCIENCE INSTRUCTOR~ EXAMINATION: CT HEAD WITHOUT CONTRAST CLINICAL INFORMATION: Dizziness COMPARISON: CT head 09/01/2011 TECHNIQUE: Contiguous axial imaging was performed from the skull base to vertex without intravenous administration of contrast. This CT examination was performed using dose optimization techniques as appropriate, variously including the following: *Automated exposure control *Adjustment of mA and/or kV according to patient size (this includes techniques or standardized protocols for targeted exams where dose is matched to indication/reason for exam; i.e. extremities or head) *Use of iterative reconstruction technique DLP: 749 mGy-cm FINDINGS: There is no evidence of acute intracranial hemorrhage or emphysematous territorial infarction. No abnormal mass effect or midline shift is seen. Siu to white matter differentiation is well preserved. No extra-axial fluid collections are identified. The ventricles are normal in size. Patchy periventricular and deep white matter hypodensities likely reflecting chronic microangiopathic changes. No acute calvarial fracture.. Mucosal thickening/partial opacification of bilateral maxillary, ethmoid, sphenoid sinuses. Decreased pneumatization of bilateral mastoid air cells. CT/CT head/brain wo IV con IMPRESSION: No CT evidence of acute intracranial hemorrhage or edematous territorial infarction. Maxillary, ethmoid and sphenoid sinus mucosal thickening/partial opacification. Critical Care Time Critical Care Time Critical Care Time: Yes Total Critical Care Time: 60 Attestation: Re-evaluations of neurological status, discussion with patient, discussion with family. Discharge plan Discharge Plan Discharge Clinical Impression: Chronic hip pain, Acute UTI, Weakness Patient Disposition: Home, Self-Care Instructions: Urinary Tract Infection in Men (ED), Weakness (ED), Hip Pain (ED) Additional Instructions: Your urine testing shows signs of infection Your lab work is reassuring Your EKG is normal Your CT scan of your head shows no signs of bleeding or stroke Your x-ray of your hip shows no bony abnormality. Your chest x-ray is normal. Please follow-up with your primary care doctor in [place] as you may need additional outpatient testing done. Please return in the meantime for any change in symptoms or worsening symptoms Prescriptions: New cefuroxime axetil 500 mg tablet 500 mg PO BID Qty: 14 0RF No Action tramadol 50 mg tablet 50 mg PO Q6H PRN (Reason: pain) Qty: 20 0RF amoxicillin-pot clavulanate [Augmentin] 875-125 mg tablet 1 tab PO BID Qty: 20 0RF Referrals: Physician,Unknown J [Primary Care Provider] - 1 week
--- NOTE | 2023-07-08 12:14 | ECG_ITS ---
Test Reason : TACHYCARDIA Blood Pressure : / mmHG Vent. Rate : 111 BPM Atrial Rate : 111 BPM P-R Int : 146 ms QRS Dur : 084 ms QT Int : 352 ms P-R-T Axes : 036 028 018 degrees QTc Int : 478 ms Sinus tachycardia Possible Left atrial enlargement Borderline ECG When compared with ECG of 04-NOV-2016 20:56, Sinus rhythm has replaced Electronic ventricular pacemaker Vent. rate has increased BY 57 BPM Referred By: Vicenta Wells Electronically Signed By:CATARINA HOUGH MD
[2023-07-08 12:30] LABS: MANUAL DIFF FLAG NO
[2023-07-08 12:35] LABS: Basophils Absolute Auto 0.1 X10*3/uL (0.0-0.2); Basophils Percent Auto 0.4 % (0-2); Hematocrit 44.7 % (42.0-52.0); Hemoglobin 15.6 g/dl (14.0-18.0); Imm Gran Abs Auto 0.06 X10*3/uL (0.00-0.03); Imm Gran Pct Auto 0.4 % (0.0-0.4); Lymphocytes Absolute Auto 1.5 X10*3/uL (1.2-4.9); Lymphocytes Percent Auto 10.8 % (20-40); Mean Corpuscular HGB Conc 34.9 g/dl (31.0-36.0); Mean Corpuscular Volume 88.7 fL (80.0-98.0); Mean Platelet Volume 9.3 fL (9.4-12.4); Neutrophils Absolute Auto 11.4 x10*3/uL (2.0-8.3); Neutrophils Percent Auto 81.4 % (45-73); Platelet Count 227 X10*3/uL (160-400); Red Blood Count 5.04 X10*6/uL (4.60-5.80); White Blood Count 13.9 X10*3/uL (4.8-10.8)
[2023-07-08 12:40] LABS: INTERNATIONAL NORM RATIO 1.1 (0.9-1.1); Prothrombin Time 13.7 SEC (11.1-13.3)
[2023-07-08 12:46] LABS: Alanine Aminotransferase 11 U/L (0-40); Alkaline Phosphatase 71 U/L (39-117); Anion Gap 14 (12-20); Aspartate Amino Transferase 12 U/L (5-37); Bilirubin Total 1.5 mg/dL (0.0-1.0); Blood Urea Nitrogen 18 mg/dL (9-16); Calcium 9.4 mg/dL (8.4-10.2); Carbon Dioxide 25 mmol/L (22-29); Chloride 107 mmol/L (96-108); Creatinine Clr Calc Pharmacy 63.3; Estimated Glomerular Filt Rate > 60; Glucose Random 175 mg/dL (60-115); Potassium 4.4 mmol/L (3.3-5.1); Sodium 142 mmol/L (135-145); Total Protein 7.4 g/dL (6.5-8.0)
[2023-07-08 12:53] LABS: Troponin-I High Sensitivity 19.4 ng/L (<3.5-35.0)
[2023-07-08 13:15] LABS: Influenza A PCR NEGATIVE (Negative); Influenza B PCR NEGATIVE (Negative); Resp Syncy Virus RNA Qual PCR NEGATIVE (Negative); SARS COV2 PCR INHOUSE NEGATIVE (Negative)
[2023-07-08 16:06] VITALS: BP 133/69; PULSE 77; RESP 16; TEMP 37.3; O2SAT 95
[2023-07-08 17:03] VITALS: BP 124/58; PULSE 78
[2023-07-08 17:06] VITALS: BP 124/64; PULSE 87
[2023-07-08 17:08] VITALS: BP 113/68; PULSE 100
--- NOTE | 2023-07-08 17:17 | PC.NURSE ---
pt a&o x4, pleasant, calm, and cooperative. pt resting quietly on stretcher in no apparent distress. orthostatic BPs completed and documented in worklist. pt granddaughter at bedside. rr even/unlabored. call gastelum within reach. plan of care ongoing.
[2023-07-08 18:12] LABS: Magnesium 1.6 mg/dL (1.6-2.6)
[2023-07-08 18:19] LABS: Troponin-I High Sensitivity 22.4 ng/L (<3.5-35.0)
[2023-07-08 18:48] LABS: Appearance Urine Cloudy; Color Urine Dark Yellow; Glucose Urine UA Negative (Negative); Leukocyte Esterase Urine Large (3+) (Negative); Nitrite Urine Positive (Negative); UMIC TRIGGER UACC YES; Urine Blood Trace (Negative); Urine Ketones Trace mg/dL (Negative); Urine Protein Trace mg/dL (Neg-Trace)
[2023-07-08 18:50] LABS: Bacteria Urine 4+ (None Seen); RBC Urine 0-2 /HPF (0-2); Squamous Epithelial Cell Urine 0-2 /HPF (0-2); UACC Culture Trigger YES; WBC Urine >50 /HPF (0-5)
[2023-07-08] MEDS: cefuroxime axetiL 500 MG TABLET PO (19:39)
[2023-07-08 20:03] VITALS: BP 125/65; PULSE 78; RESP 16; TEMP 37.2; O2SAT 95
== END 2023-07-08 20:04 | disposition home or self-care (01) ==
PROVIDERS: Nurse Practitioner Family; Registered Nurse Emergency; Emergency Provider Internal Medicine
DX: N39.0 Urinary tract infection, site not specified (principal); R53.1 Weakness; M25.552 Pain in left hip; R00.0 Tachycardia, unspecified; R26.2 Difficulty in walking, not elsewhere classified; R42 Dizziness and giddiness; I10 Essential (primary) hypertension; E11.9 Type 2 diabetes mellitus without complications; Z11.52 Encounter for screening for COVID-19; Z20.828 Contact with and (suspected) exposure to other viral communicable diseases
CPT/HCPCS: 0241U; 36415; 70450; 71046; 73502; 80053; 81001; 83735; 84484; 85025; 85610; 87086; 87088; 87186; 93005; 99284

== ENCOUNTER → 2023-07-08 12:14 | Outpatient (BNV) | payer MEDICARE, SELFPAY | PROVIDERS: Emergency Provider Internal Medicine; Visit Provider Internal Medicine Cardiovascular Disease | DX: R00.0 Tachycardia, unspecified (principal) | CPT/HCPCS: 93010 ==